=== PATIENT | male | born 1955 | race Caucasian/White ===

== ENCOUNTER → 2017-06-02 | Day surgery (SDC) | payer BC ==
[2017-06-01 12:15] LABS: BASO % 0.4 %; BASO ABS # 0.06 K/uL (0-0.2); COMPLETE YES; EOS % 1.8 %; HEMATOCRIT 48.1 % (42-52); IG% 0.9 %; LYMPH ABS # 3.11 K/uL (1.2-3.4); MEAN CELL VOLUME 90.8 fL (80-100); MEAN CORPUSCULAR HEMOGLOBIN 30.8 pg (25-34); MEAN CORPUSCULAR HGB CONC 33.9 g/dl (32-36); MEAN PLATELET VOLUME 9.3 fL (7.4-10.4); MONO % 8.9 %; PLATELET COUNT 296 K/uL (130-400); WHITE BLOOD COUNT 16.38 K/uL (4.8-10.8)
--- NOTE | 2017-06-01 12:30 | DIAGNOSTIC IMAGING REPORT ---
CHEST 2 VIEWS ROUTINE HISTORY: PRE OP TESTING COMPARISON: None. FINDINGS: The lungs are clear. Cardiac silhouette is normal in size. No pleural effusions. No pneumothorax. IMPRESSION: No acute process. Electronically signed by: Jaycob Rios M.D. 06/01/2017 12:28 PM Dictated Date/Time: 06/01/2017 12:28 PM
[2017-06-01 12:41] LABS: BLOOD UREA NITROGEN 18 mg/dl (7-18); BUN/CREATININE RATIO 16.9 (10-20); CALCIUM 9.5 mg/dl (8.5-10.1); CARBON DIOXIDE 29 mmol/L (21-32); CHLORIDE 102 mmol/L (98-107); CREATININE 1.05 mg/dl (0.60-1.40); GLUCOSE 90 mg/dl (70-99); POTASSIUM 4.1 mmol/L (3.5-5.1); SODIUM 137 mmol/L (136-145)
[2017-06-01 14:59] VITALS: BMI 32.0
[~2017-06-02] VITALS: Ht 180.3 cm; Wt 106.8 kg
[~2017-06-02] MED LIST: ACETAMINOPHEN 325 MG TAB PO PRN; AMLO-114 PO; ATROPINE SULFATE 0.1 MG/ML 5ML SYR IV PRN; BACITRACIN 50000 UNIT VIAL ONE; BUPIVACAINE/EPINEPHRINE 0.5% MPF 1:200,000 30 ML VIAL ONE; CEFAZOLIN 2000MG IV PUSH 10 ML IV SCH; ESMOLOL HCL 10 MG/ML 10 ML VIAL ONE; EpHEDrine SULFATE INJ 50 MG/ML AMP IV PRN; FENTANYL CITRATE INJ 50 MCG/1 ML 2 ML VIAL IV PRN; FENTANYL CITRATE INJ 50 MCG/1 ML 2 ML VIAL ONE; FLOSEAL HEMOSTATIC MATRIX 5ML TOP ONE; GLYCOPYRROLATE INJ 0.2 MG/ML VIAL ONE; HYDROmorphone INJ 1 MG/ML SYR IV PRN; HYDROmorphone INJ 2 MG/ML SYR/VIAL ONE; IBUP-103 PO; KETOROLAC TROMETHAMINE 30 MG/ML VIAL IV. PRN; LACTATED RINGER'S 1000ML 1,000 ML IV SCH; LIDOCAINE HCL 2% 2 ML VIAL (20MG/ML) ONE; LISI40TA PO; MIDAZOLAM HCL 1 MG/ML 2ML VIAL ONE; NEOSTIGMINE METHYLSULFATE 5 MG/5 ML SYR ONE; ONDANSETRON INJ 2 MG/ML 2 ML VIAL IV PRN; ONDANSETRON INJ 2 MG/ML 2 ML VIAL ONE; OXYC1TAB3 PO; OXYCODONE HCL IR 5 MG TAB (IMMEDIATE RELEASE) PO PRN; PATIENT'S HEIGHT AND/OR WEIGHT NEEDED SCH; PROMETHAZINE HCL INJ 6.25 MG in SODIUM CHLORIDE 0.9% 50ML 50 ML IV PRN; PROPOFOL IV EMULSION 10 MG/ML 20 ML VIAL IV ONE; ROCURONIUM BROMIDE 10 MG/ML 5 ML VIAL IV ONE
[2017-06-02 07:36] VITALS: BP 137/100; PULSE 90; TEMP 36.7; O2SAT 97; Ht 180.3 cm; Wt 106.8 kg
--- NOTE | 2017-06-02 08:14 | History & Physical Bridge Note ---
H&P Re-Evaluation Bridge Note: I have examined the patient, reviewed the History & Physical and in the interval since the performance of the History & Physical I have noted the following changes of clinical significance: No changes noted
--- NOTE | 2017-06-02 08:15 | History and Physical ---
History & Physical Date Jun 02, 2017. Chief Complaint Back and leg pain History of Present Illness The patient is a 61 year old male with complaints of back and leg pain Additional History Hepatic Disease: No Endocrine Disorder: No Kidney Disease: No Hypertension: Yes Heart Disease: No Bleeding Tendencies: No Infectious Diseases: No Allergies Coded Allergies: No Known Allergies (Unverified , 06/02/17) Home Medications Scheduled Amlodipine (Norvasc), 10 MG PO QAM Ibuprofen Tab (Advil), 400 MG PO PRN Lisinopril (Zestril), 40 MG PO QAM Scheduled PRN Oxycodone Ir (Roxicodone Ir), 1-2 TAB PO Q4H PRN for Severe Pain Diagnosis Are needed nucleus pulposus L4 5 on the left Plan of Treatment Far lateral discectomy L4 5 on the left
--- NOTE | 2017-06-02 10:29 | Discharge Instructions ---
Discharge Instructions Date of Service Jun 02, 2017. Admission Reason for Admission: Lumbar Intervertebral Disc Disorders W/Radiculopat Discharge Discharge Diagnosis / Problem: herniated disk Discharge Goals Goal(s): Decrease discomfort Activity Recommendations Activity Limitations: per Instructions/Follow-up section . Instructions / Follow-Up Instructions / Follow-Up ACTIVITY RECOMMENDATIONS: SELF CARE INSTRUCTIONS AFTER A LAMINECTOMY 1. No prolonged sitting (less than 30 minutes for the first 3 weeks after surgery). 2. No bending, lifting more than 5 pounds, or twisting (roll like a log when turning in bed). 3. You may shower 3 days after surgery if no drainage from wound. Thoroughly dry wound. Do not soak in the tub. 4. Please walk as much as you can for exercise. Gradually increase the distance that you walk as your endurance increases. 5. You may drive in 7-10 days if you are comfortable and no longer requiring pain medications. SPECIAL CARE INSTRUCTIONS: VERY IMPORTANT TO READ AND REVIEW A. Your surgical incision has been closed with a cosmetic suture under the skin that will dissolve in about 6 weeks. In 14 days, you can use a pair of clean scissors and cut the suture that is left outside of the skin at the ends of your incision. B. Complications are uncommon, but please contact us if you have any signs or symptoms of: 1. wound infection (fever higher than 102.5 degrees F, redness, separation of wound, drainage, or increasing pain from the incision) 2. blood clots in legs (pain, swelling, redness and warmth in legs) 3. urinary tract infection (fever higher than 102.5 degrees, burning upon urination or increased frequency of urination) 4. nerve problems (inability to walk on your toes or heels, numbness, loss of bowel or bladder control) 5. any other symptoms that concern you. C. Please call the office at if you have any concerns or questions about your operation or recovery. MANAGING PAIN AFTER SPINAL SURGERY 1. Narcotic medication is intended for short-term use and will be provided for surgical pain. Surgical pain usually lasts for a period of 4-6 weeks. Narcotic medication includes Percocet, Vicodin, Darvocet, Tylenol #3 or Lortab. 2. Longer-term pain is more appropriately treated with non-narcotic medication such as Tylenol ES. 3. Muscle spasm is not appropriately treated with narcotics. Muscle relaxers such as Soma, Flexeril or Skelaxin can be used along with Tylenol ES. 4. Remember that we all live with some "aches and pains". This is not unusual or uncommon after an injury or as we get older. 5. We will provide appropriate medication within the normal guidelines of their prescribed use. We will also be very cautious and aware of potential abuse and extended duration of patients' medication needs. 6. Please allow 2-3 days to process refills. Prescriptions will not be mailed but must be picked up at the office. FOLLOW UP VISIT: Keep your scheduled follow-up appointment. Any questions, please call the office at . Current Hospital Diet Patient's current hospital diet: Discharge Diet Recommended Diet: Regular Diet Procedures Procedures Performed: Far Lateral Discectomy L4-5 Left Pending Studies Studies pending at discharge: no Medical Emergencies . Who to Call and When: Medical Emergencies: If at any time you feel your situation is an emergency, please call 911 immediately. . Non-Emergent Contact Non-Emergency issues call your: Primary Care Provider . "Provider Documentation" section prepared by Saroj Boo. . VTE Core Measure Inpt VTE Proph given/why not?: Carolina Serrano, SCD's
--- NOTE | 2017-06-02 10:34 | [facility] Operative Report ---
Operative Report Operative Date Jun 02, 2017. Pre-Operative Diagnosis Herniated Nucleus Pulposus L4- 5 on the Left Post-Operative Diagnosis Herniated Nucleus Pulposus L4- 5 on the Left Procedure(s) Performed Far Lateral Discectomy L4-[address] 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 After informed consent was obtained patient was taken to the operative suite underwent intubation placed in a prone position the George table on top Miguel frame. All bony prominences were well-padded eyes inspected to ensure no external pressure placed upon them. This point the lumbar spines prepped and draped nostril fashion. The assistance of fluoroscopy identified the L4 5 disc space. A 2 cm incision was then placed just lateral to the midline on the left side overlying this region. Utilizing the metrics dilators I exposed the pars and neural foramen of L4 5 on the left. It was locked in position. Then it excised the intertransverse ligament to expose and exiting L4 nerve root. This was mobilized superiorly and several fragments of loose disc material identified underneath the root. They removed in their entirety. There is explored to ensure our frames addressed. The incision was copiously irrigated. The dilator system retractor was removed and incision closed with 1 Vicryl in the fascia 2-0 Vicryl subcutaneous tediously 4 Monocryl for final skin closure. Steri-Strips sterile dressings placed. Patient we can take PACU stable condition. I attest to the content of the Intraoperative Record and any orders documented therein. Any exceptions are noted below.
--- NOTE | 2017-06-02 11:21 | DIAGNOSTIC IMAGING REPORT ---
INTRAOPERATIVE RADIOGRAPHS CLINICAL HISTORY: Discectomy. Fluoroscopy time: 10 seconds. FINDINGS: 2 spot fluoroscopic views of the lower lumbar spine are presented. On the initial image a probe projects posteriorly at the L4-L5 level. On the second image a probe projects just posterior to the base of the L4 vertebral body. IMPRESSION: Intraoperative images from a discectomy procedure as above. See operative report for detailed findings. Electronically signed by: Jadon Malhotra M.D. 06/02/2017 11:20 AM Dictated Date/Time: 06/02/2017 11:19 AM
--- NOTE | 2017-06-02 11:58 | Anesthesiology Progress Note ---
Anesthesia Post Op Note Date & Time Jun 02, 2017 at 11:58 Vital Signs Pain Intensity: 4 Vital Signs Past 12 Hours Date Time Temp Pulse Resp B/P (MAP) Pulse Ox O2 Delivery O2 Flow Rate FiO2 06/02/17 11:55 82 16 126/84 95 Room Air 06/02/17 11:40 71 16 131/92 94 Room Air 06/02/17 11:25 74 16 142/89 95 Room Air 06/02/17 11:10 36.2 81 14 148/93 96 Room Air 06/02/17 11:00 83 14 147/91 100 Oxymask 8 06/02/17 10:50 89 16 145/95 100 Oxymask 8 06/02/17 10:43 36.4 89 16 147/90 100 Oxymask 8 06/02/17 07:36 36.7 90 18 137/100 (112) 97 Room Air Notes Mental Status: alert / awake / arousable, participated in evaluation Pt Amnestic to Procedure: Yes Nausea / Vomiting: adequately controlled Pain: adequately controlled Airway Patency, RR, SpO2: stable & adequate BP & HR: stable & adequate Hydration State: stable & adequate Anesthetic Complications: no major complications apparent
[2017-06-02 12:20] VITALS: BP 149/82; PULSE 74; TEMP 36.6; O2SAT 90
[2017-06-02 12:50] VITALS: BP 146/82; PULSE 80; TEMP 36.9; O2SAT 93
[2017-06-02 13:26] VITALS: BP 144/76; PULSE 84; TEMP 36.8; O2SAT 94
[2017-06-02 13:50] VITALS: BP 128/76; PULSE 84; TEMP 36.6; O2SAT 93
== END | disposition home or self-care (01) ==
LOC: C.ACU 07:12
PROVIDERS: ATTEND Orthopaedic Surgery Orthopaedic Surgery of the Spine
DX: M51.26 Other intervertebral disc displacement, lumbar region (principal); I10 Essential (primary) hypertension; E66.9 Obesity, unspecified; Z68.33 Body mass index [BMI] 33.0-33.9, adult; Z79.899 Other long term (current) drug therapy

== ENCOUNTER 2018-12-29 05:10 | Inpatient (IN) ==
--- NOTE | 2018-11-30 09:38 | PAT Medication Instructions ---
Medication Instructions Date of Service November 30, 2018 Home Medications amlodipine [Norvasc] 10 mg PO QAM lisinopril 40 mg PO QAM DO NOT take the morning of surgery lisinopril 40 mg PO QAM Take morning of surgery With a small sip of water, OTHERWISE NOTHING TO EAT OR DRINK AFTER MIDNIGHT: amlodipine [Norvasc] 10 mg PO QAM Other Notes If you have any questions please call us at [phone] or [phone] or [phone] or [phone]
--- NOTE | 2018-11-30 12:03 | Anesthesiology Consultation ---
Date of Service November 30, 2018 Assessment & Plan (1) Encounter for pre-operative examination: Chart Review Chart Review: Acceptable Risk for Surgery and Patient seen in Pre Admission Testing Consults Requested medical (Dr. Cliff Dickey (12/18)) Patient was seen by PCP for preoperative evaluation on 12/18/18. Per note from that visit, "Patient is medically cleared for intended procedure". Teaching & Discussion Pre-Anesthesia Teaching/Discussion Notes: Instructed NPO after midnight before surgery, except medications with 15 cc of water. Medication instructions provided according to the PAT guidelines. History Surgery Operation Date: 12/29/18 10:05 Proposed Procedures p Right Total Knee Arthroplasty - Anirudh Zazueta MD Height/Weight Height: 5 ft 11 in Weight: 115.5 kg Allergies Allergy/AdvReac Type Severity Reaction Status Date / Time No Known Allergies Allergy Unverified 11/24/18 12:07 Medications Home Medications Medication Instructions Recorded Confirmed Last Taken amlodipine [Norvasc] 10 mg PO QAM 11/24/18 11/24/18 Unknown lisinopril 40 mg PO QAM 11/24/18 11/24/18 Unknown Past Medical History Medical History Degenerative disc disease HTN (hypertension) Osteoarthritis Exercise / Class Metabolic Activity II 4-5 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 Denies CP or SOB. ) Past Family History Family History Mother Family history of diabetes mellitus Past Surgical History Surgical History History of discectomy LUMBAR SPINE - 06/02/17 - MAC #3, ETT #8.0, Grade 1 View History of left knee surgery QUAD TENDON REPAIR History of tonsillectomy History of wisdom tooth extraction Past Anesthesia History No Hx of Anesthesia Complications and No Family Hx of Anesthesia Complications History of PONV No Hx of PONV and No Hx of Motion Sickness Social History Smoking Status: Never smoker Do You Dip or Chew Tobacco: No Hx Alcohol Use: Yes Alcohol type: beer alcohol intake frequency: a few times a week Hx Substance Use: No substance use type: does not use Review of Systems Patient denies chest pain, shortness of breath, dyspnea on exertion, reflux, cough, wheezing, palpitations. +Joint Pain (Knees) Physical Exam Vital Signs BP: 137/80 P: 67 R: 70 T: 97.4 SPO2: 97% Constitutional + obese ENMT Mouth: + chipped teeth Thyromental Distance: > or= 3.5 Finger Breadths (4) Mallampati Class: I Neck normal visual inspection, trachea midline and + facial hair (Gupta - Will keep it trim); neck extension not limited Respiratory normal respiratory effort Auscultation: lungs clear to auscultation bilaterally Cardiovascular Rate/Rhythm: regular rate and regular rhythm Heart Sounds: no murmur Vessels: no carotid bruit Psychiatric Orientation: alert and oriented x 3 Testing Laboratory Results 11/30/18 11:46 11/30/18 11:46 11/30/18 11/30/18 11/30/18 11:46 11:46 11:46 PT 10.6 INR 1.0 APTT 26.8 Hemoglobin A1c 6.0 H Urine Color Urine Appearance Urine pH Ur Specific [place] Urine Protein Urine Glucose (UA) Urine Ketones Urine Nitrite Ur Leukocyte Esterase Blood Type O Negative Antibody Screen NEGATIVE 11/30/18 Unknown PT INR APTT Hemoglobin A1c Urine Color Yellow Urine Appearance Clear Urine pH 5.0 Ur Specific [place] 1.025 Urine Protein Negative Urine Glucose (UA) Negative Urine Ketones Negative Urine Nitrite Negative Ur Leukocyte Esterase Negative Blood Type Antibody Screen Electrocardiogram Date: 11/30/18 Findings: + NSR @ (61) When compared with ECG of 06/01/19, Non-specific change in ST segment in inferior leads. Inverted T waves have replaced nonspecific T wave abnormality in inferior lead Nonspecific T wave abnormality no longer evident in anterior leads. Chest X-Ray Date: 11/30/18 Findings: + NAD
--- NOTE | 2018-11-30 12:49 | XRay Report ---
XR chest Pre-admission PA/Lat HISTORY: Preop. COMPARISON: Chest 06/01/2017. FINDINGS: Small faint nodular density at the left lung base favors a nipple shadow. Otherwise, the cynthia ngs are clear. The heart is normal in size. No pleural effusions. No pneumothorax. IMPRESSION: No acute process. Electronically signed by: Jaycob Rios M.D. 11/30/2018 12:48 PM
[2018-11-30 12:59] LABS: Eosinophils # (auto) 0.43 K/uL (0-0.5); Eosinophils % (auto) 4.2 %; Hematocrit (blood only) 43.5 % (42-52); Hemoglobin 14.9 g/dL (14.0-18.0); Immature Granulocytes # (auto) 0.07 K/uL (0.00-0.02); Immature Granulocytes % (auto) 0.7 %; Lymphocytes # (auto) 2.97 K/uL (1.2-3.4); Mean Corpuscular Hgb Conc 34.3 g/dL (32-36); Mean Corpuscular Volume 88.1 fL (80-100); Mean Platelet Volume 9.7 fL (7.4-10.4); Monocytes # (auto) 1.02 K/uL (0.11-0.59); Neutrophils # (auto) 5.66 K/uL (1.4-6.5); Neutrophils % (auto) 55.1 %; Platelet Count 275 K/uL (130-400); RDW Coefficient of Variation 13.3 % (11.5-14.5); RDW Standard Deviation 42.8 fL (36.4-46.3); Red Blood Count 4.94 M/uL (4.7-6.1); White Blood Count 10.25 K/uL (4.8-10.8)
[2018-11-30 13:06] LABS: Calcium 9.4 mg/dl (8.5-10.1); Creatinine Clr Calc Pharmacy 116.3 ml/min; Est GFR (Non-African American) 93.2; Potassium 4.1 mmol/L (3.5-5.1)
[2018-11-30 13:07] LABS: Partial Thromboplastin Time 26.8 Seconds (21.0-31.0); Prothrombin Time 10.6 Seconds (9.0-12.0)
[2018-11-30 13:07] LABS: Appearance Urine Clear (Clear); Bilirubin Urine Negative (Negative); Blood Urine Negative (Negative); Color Urine Yellow; Glucose Urine UA Negative (Negative); Ketones Urine Negative (Negative); Leukocyte Esterase Urine Negative (Negative); Nitrite Urine Negative (Negative); Protein Urine Negative (Negative); Specific Gravity Urine 1.025 (1.000-1.030); Urobilinogen Urine Negative (Negative)
[2018-11-30 13:42] LABS: Estimated Average Glucose 126 mg/dl
--- NOTE | 2018-12-21 20:13 | History & Physical Report ---
Date of Service December 21, 2018 Assessment & Plan (1) Primary osteoarthritis of right knee: Patient has significant osteoarthritis of right knee. He has failed conservative measures as above. Treatment options discussed. Risks, benefits and alternatives to surgery including but not limited to infection, DVT, pain, stiffness, need for revision surgery, damage to blood vessels, damage to nerves, PE, , were discussed with the patient and they wish to proceed. Plan will be for right total knee arthroplasty. All questions were answered. Plan will be for aspirin 81mg BID x 30 days for DVT prophylaxis. We will plan on outpatient PT once patient is discharged from the hospital. He will follow up in the office post operatively. History of Present Illness Chief Complaint: Right knee pain Primary Care Provider: Cliff Dickey Patient is a 68 year old male with past medical history significant for hypertension and history of TIA who presents with chronic right knee pain. X- rays demonstrate significant degenerative joint disease with [id number] lateral compartment. He has failed conservative measures including cortisone injections, NSAIDs, therapy. The pain is affecting his daily activities. He would like to proceed with right total knee arthroplasty. Patient denies headaches, sweats, fevers, chills, double vision, blurred vision, cough, sore throat, dysphagia, chest pain, sob, wheezing, n/v/d/c, numbness, tingling, fatigue, urinary symptoms, mood disorders. ROS positive for bilateral knee pain and stiffness. Allergies Allergy/AdvReac Type Severity Reaction Status Date / Time No Known Allergies Allergy Unverified 11/24/18 12:07 Home Medications Home Medications Medication Instructions Recorded Confirmed Type amlodipine [Norvasc] 10 mg PO QAM 11/24/18 11/24/18 History lisinopril 40 mg PO QAM 11/24/18 11/24/18 History Past Med/Surg History Medical History Degenerative disc disease HTN (hypertension) Osteoarthritis Surgical History History of discectomy LUMBAR SPINE - 06/02/17 - MAC #3, ETT #8.0, Grade 1 View History of left knee surgery QUAD TENDON REPAIR History of tonsillectomy History of wisdom tooth extraction Family History Mother Family history of diabetes mellitus Social History Preferred Language: Latvian Communication Ability: Effective Purchaser Required: No Beliefs That Will Affect Care: None Current Living Situation: Spouse Other Information That Helps Us Care for You: No Feels Safe at Home: Yes Safety Concerns: Feels Safe At This Time Smoking Status: Never smoker Do You Dip or Chew Tobacco: No Second Hand Exposure: No Hx Alcohol Use: Yes Alcohol type: beer Hx Substance Use: No Review of Systems All systems reviewed & are unremarkable except as noted in HPI & below Physical Exam Constitutional: well developed and well nourished; no acute distress Eyes: PERRL, conjunctivae normal, anicteric sclerae ENMT: external ear and nose normal, oropharynx normal Neck: trachea midline, no thyromegaly Respiratory: normal respiratory effort, lungs clear to auscultation Cardiovascular: RRR, no murmur, no edema Musculoskeletal: Right knee-ROM 0-125 degrees with crepitus, mild effusion, tenderness lateral joint line, Sonia's positive, stable to valgus and varus stress test. Skin: no rashes, warm and dry Neurologic: patellar DTR's 2+ bilat, sensation intact Psychiatric: A+Ox3, euthymic affect Results & Data Laboratory Results Lab Results 11/30/18 11/30/18 11/30/18 Range/Units 11:46 11:46 11:46 WBC 10.25 (4.8-10.8) K/uL RBC 4.94 (4.7-6.1) M/uL Hgb 14.9 (14.0-18.0) g/dL Hct 43.5 (42-52) % MCV 88.1 (80-100) fL MCH 30.2 (25-34) pg MCHC 34.3 (32-36) g/dL RDW Std Deviation 42.8 (36.4-46.3) fL RDW Coeff of Carlito 13.3 (11.5-14.5) % Plt Count 275 (130-400) K/uL MPV 9.7 (7.4-10.4) fL Immature Gran % (Auto) 0.7 % Neut % (Auto) 55.1 % Lymph % (Auto) 29.0 % Chase % (Auto) 10.0 % Eos % (Auto) 4.2 % Baso % (Auto) 1.0 % Immature Gran # (Auto) 0.07 H (0.00-0.02) K/uL Neut # (Auto) 5.66 (1.4-6.5) K/uL Lymph # (Auto) 2.97 (1.2-3.4) K/uL Chase # (Auto) 1.02 H (0.11-0.59) K/uL Eos # (Auto) 0.43 (0-0.5) K/uL Baso # (Auto) 0.10 (0-0.2) K/uL PT 10.6 (9.0-12.0) Seconds INR 1.0 (0.9-1.1) APTT 26.8 (21.0-31.0) Seconds PTT Ratio 1.0 Sodium 141 (136-145) mmol/L Potassium 4.1 (3.5-5.1) mmol/L Chloride 107 (98-107) mmol/L Carbon Dioxide 28 (21-32) mmol/L Anion Gap 6.0 (3-11) BUN 19 H (7-18) mg/dl Creatinine 0.84 (0.6-1.4) mg/dl Est Cr Clr Drug Dosing 116.3 ml/min Est GFR ( Amer) 108.0 Est GFR (Non-Af Amer) 93.2 BUN/Creatinine Ratio 23.0 H (10-20) Glucose 68 L (70-99) mg/dl Estimat Average Glucose mg/dl Hemoglobin A1c (4.5-5.6) % Calcium 9.4 (8.5-10.1) mg/dl Albumin 4.0 (3.4-5.0) gm/dl Urine Color Urine Appearance (Clear) Urine pH (4.5-7.5) Ur Specific [place] (1.000-1.030) Urine Protein (Negative) Urine Glucose (UA) (Negative) Urine Ketones (Negative) Urine Blood (Negative) Urine Nitrite (Negative) Urine Bilirubin (Negative) Urine Urobilinogen (Negative) Ur Leukocyte Esterase (Negative) Blood Type Antibody Screen 11/30/18 11/30/18 11/30/18 Range/Units 11:46 11:46 Unknown WBC (4.8-10.8) K/uL RBC (4.7-6.1) M/uL Hgb (14.0-18.0) g/dL Hct (42-52) % MCV (80-100) fL MCH (25-34) pg MCHC (32-36) g/dL RDW Std Deviation (36.4-46.3) fL RDW Coeff of Carlito (11.5-14.5) % Plt Count (130-400) K/uL MPV (7.4-10.4) fL Immature Gran % (Auto) % Neut % (Auto) % Lymph % (Auto) % Chase % (Auto) % Eos % (Auto) % Baso % (Auto) % Immature Gran # (Auto) (0.00-0.02) K/uL Neut # (Auto) (1.4-6.5) K/uL Lymph # (Auto) (1.2-3.4) K/uL Chase # (Auto) (0.11-0.59) K/uL Eos # (Auto) (0-0.5) K/uL Baso # (Auto) (0-0.2) K/uL PT (9.0-12.0) Seconds INR (0.9-1.1) APTT (21.0-31.0) Seconds PTT Ratio Sodium (136-145) mmol/L Potassium (3.5-5.1) mmol/L Chloride (98-107) mmol/L Carbon Dioxide (21-32) mmol/L Anion Gap (3-11) BUN (7-18) mg/dl Creatinine (0.6-1.4) mg/dl Est Cr Clr Drug Dosing ml/min Est GFR ( Amer) Est GFR (Non-Af Amer) BUN/Creatinine Ratio (10-20) Glucose (70-99) mg/dl Estimat Average Glucose 126 mg/dl Hemoglobin A1c 6.0 H (4.5-5.6) % Calcium (8.5-10.1) mg/dl Albumin (3.4-5.0) gm/dl Urine Color Yellow Urine Appearance Clear (Clear) Urine pH 5.0 (4.5-7.5) Ur Specific [place] 1.025 (1.000-1.030) Urine Protein Negative (Negative) Urine Glucose (UA) Negative (Negative) Urine Ketones Negative (Negative) Urine Blood Negative (Negative) Urine Nitrite Negative (Negative) Urine Bilirubin Negative (Negative) Urine Urobilinogen Negative (Negative) Ur Leukocyte Esterase Negative (Negative) Blood Type O Negative Antibody Screen NEGATIVE Diagnostic Findings Right knee radiographs: Arthritic change, [id number] lateral compartment. Osteophyte formation lateral tibial plateau and significant degenerative changes patellofemoral joint.
[2018-12-29] MEDS ORDERED: BUPIVACAINE 0.5 % 5 MG/1 ML PF 10ML VIAL ONE (05:57)
[2018-12-29] MEDS ORDERED: DEXAMETHASONE SOD INJ 4 MG/ML VIAL ONE (05:57)
[2018-12-29] MEDS ORDERED: BUPIVACAINE/EPINEPHRINE 0.25% 1:200,000 30 ML VIAL ONE (05:57)
[2018-12-29] MEDS ORDERED: dexAMETHasone 4 MG TAB PO SCH (06:00)
[2018-12-29] MEDS ORDERED: CEFAZOLIN 2000MG 2,000 MG/15 ML SYR IV SCH (06:00)
[2018-12-29] MEDS ORDERED: FAMOTIDINE 20 MG TAB PO SCH (06:00)
[2018-12-29] MEDS ORDERED: ROPIVACAINE 0.5% HCL/PF 150 MG, BUPIVACAINE 0.5% MPF 30 ML, EPINEPHrine 30MG/30ML (OR U... INSTIL SCH (06:00)
[2018-12-29] MEDS ORDERED: CeleBREX 200 MG CAP PO SCH (06:00)
[2018-12-29] MEDS ORDERED: CEFAZOLIN 1000MG 1,000 MG/7.5 ML SYR IV SCH (06:00)
[2018-12-29] MEDS ORDERED: TRANEXAMIC ACID 1,000 MG **IV Pre-op IV SCH (06:00)
[2018-12-29] MEDS ORDERED: METOCLOPRAMIDE HCL 10 MG TABLET PO SCH (06:00)
[2018-12-29] MEDS ORDERED: LR 500ML BOLUS, THEN 15ML/HR IV SCH (06:00)
[2018-12-29] MEDS ORDERED: ACETAMINOPHEN 500 MG TAB PO SCH (06:00)
[2018-12-29] MEDS ORDERED: TRANEXAMIC ACID 1,000 MG **IV Intra-op IV SCH (06:30)
[2018-12-29] MEDS ORDERED: LIDOCAINE HCL 2% 2 ML VIAL/AMP(20MG/ML) INFIL ONE (06:30)
[2018-12-29] MEDS ORDERED: PROPOFOL IV EMULSION 10 MG/ML 20 ML VIAL IV ONE ×2 (06:30→07:58)
[2018-12-29] MEDS ORDERED: MIDAZOLAM HCL 1 MG/ML 2ML VIAL ONE ×2 (06:30→08:32)
[2018-12-29] MEDS ORDERED: fentaNYL citrate 100 MCG/2 ML VIAL ONE (06:30)
[2018-12-29] MEDS ORDERED: BACITRACIN INJ 50,000 UNIT VIAL ONE (06:41)
[2018-12-29] MEDS ORDERED: ATROPINE SULFATE 0.1 MG/ML 10ML SYR IV PRN (06:55)
[2018-12-29] MEDS ORDERED: ePHEDrine sulfate 50 MG/ML AMP IV PRN (06:55)
[2018-12-29] MEDS ORDERED: ONDANSETRON INJ 2 MG/ML 2 ML VIAL IV PRN ×2 (06:55→10:29)
[2018-12-29] MEDS ORDERED: fentaNYL citrate 100 MCG/2 ML VIAL IV PRN (06:55)
[2018-12-29] MEDS ORDERED: METOCLOPRAMIDE HCL 10 MG TABLET ONE (06:58)
[2018-12-29] MEDS ORDERED: dexAMETHasone 4 MG TAB PO ONE (06:58)
[2018-12-29] MEDS ORDERED: CeleBREX 200 MG CAP ONE (06:58)
[2018-12-29] MEDS ORDERED: ACETAMINOPHEN 500 MG TAB ONE (06:59)
--- NOTE | 2018-12-29 07:01 | History & Physical Bridge Note ---
Date of Service December 29, 2018 History & Physical Bridge Note I have examined the patient, reviewed the History & Physical and in the interval since the performance of the History & Physical I have noted the following changes of clinical significance: no changes noted
[2018-12-29] MEDS: FAMOTIDINE 20 MG TAB ONE ×2 (07:03)
--- NOTE | 2018-12-29 08:49 | Operative Report ---
Post Operative Report Pre & Post Diagnosis Operation Date: 12/29/18 07:00 Pre-Op Diagnosis: Right Knee Osteoarthritis Post-Op Diagnosis: Right Knee Osteoarthritis Procedure Operation Date: 12/29/18 07:00 Actual Procedures p Right Total Knee Arthroplasty(Right) - Anirudh Zazueta MD Surgeon Anirudh Zazueta MD Med Dir 20 Estimated Blood Loss 20 Findings Consistent with Post-Op Diagnosis Specimens Bone and tissue Drains 2 Hemovac Anesthesia Type Spinal MAC Complications none Disposition Accompanied Patient To Recovery: No Disposition: Recovery Room Indications The patient is a 63-year-old male long-standing arthritic change the right knee. [id number] lateral compartment. He is failed conservative measures, injection, anti-inflammatory medications and rehab. He wishes to proceed with a right total knee arthroplasty. Description of Procedure Risks benefits and alternatives of surgery including but not limited to infe ction, DVT, pain, stiffness, need for surgery, damage to blood vessels, damage to nerves or risks of anesthesia were discussed with the patient and they wished to proceed. The patient was identified and the laterality was confirmed and marked. They received a preoperative antibiotic as well as a spinal anesthetic and an abductor canal block. A well-padded tourniquet was applied and then the limb was prepped and draped in standard manner with ChloraPrep. The limb was exsanguinated and the tourniquet was inflated. I made a standard anterior incision. I sharply incised the skin then utilized Bovie electrocautery to achieve hemostasis. I made a medial parapatellar arthrotomy and mobilized the patella laterally. I then excised the anterior horns of the medial and lateral meniscus as well as the infrapatellar fat pad. I elevated a portion of the MCL off of the tibia. I then pinned into place a patient-matched distal femoral cutting guide and made my distal femoral resection. I then pinned into place the 5 in 1 femoral cutting guide. I made my anterior, posterior and chamfer cuts. I then excised the cruciates and the remaining portions of the menisci. I then pinned into place a patient- matched tibial cutting guide and made my tibial resection. I then pinned into place the tibial plate a utilizing alignment ovi to confirm rotation. I then cut for the post. Utilizing a lamina brake drum molder and I then removed posterior osteophytes off the femur. I then placed a trial femur into position and cut for the trochlear component. I then sequentially trialed to size the polyethylene until there was good soft tissue balancing and range of motion. I then prepared the patella with a freehand cut utilizing sagittal saw. I sized and drilled for the patella. There was good tracking to the patella no lateral release was needed. All the trial components were removed. The deep tissues were anesthetized with an ortho mix solution. Then with Simplex HV with gentamicin cement, I cemented my definitive components. Definitive components, Milligan and Nephew Charles 2: Femur 8 Tibia 8 Poly 9 Patella 38 oval A betadine soak was performed. A deep drain was placed. The arthrotomy was closed with interrupted #1 Vicryl suture subcutaneous tissue was closed with interrupted 2-0 Vicryl suture. The skin was closed with with nathan. An Acticoat and Jose dressing were placed. Sterile dressings were applied. All needle and sponge counts were correct at the end of the procedure patient was transferred to the PACU in stable condition without apparent complication. The PA-C was necessary for assistance with procedure for assistance in positioning, prepping, draping, retraction and closure. I attest to the content of the Intraoperative Record and any orders documented therein. Any exceptions are noted below.
--- NOTE | 2018-12-29 09:56 | XRay Report ---
XR knee RT 2V routine CLINICAL HISTORY: Surgical Post Op COMPARISON: None FINDINGS: Alignment of the total right knee arthroplasty is anatomic. There is no fracture or unexpe cted radiopaque foreign body. There are drains and skin nathan. IMPRESSION: Expected findings following total right knee arthroplasty. Electronically signed by: Roe Julio M.D. 12/29/2018 9:55 AM
[2018-12-29] MEDS ORDERED: MAGNESIUM HYDROXIDE SUSP 30 ML UDC PO PRN (10:29)
[2018-12-29] MEDS ORDERED: METOCLOPRAMIDE HCL INJ 5 MG/ML 2 ML VIAL IV PRN (10:29)
[2018-12-29] MEDS ORDERED: BISACODYL 10 MG SUPP PR PRN (10:29)
[2018-12-29] MEDS ORDERED: TAMSULOSIN HCL 0.4 MG CAP PO PRN (10:29)
[2018-12-29] MEDS ORDERED: NALOXONE HCL 0.4 MG/1 ML VIAL/CARP IV PRN (10:29)
[2018-12-29] MEDS: OXYCODONE HCL IR 5 MG TAB (IMMEDIATE RELEASE) PO PRN ×3 (11:16→22:25)
[2018-12-29] MEDS: SODIUM CHLORIDE 0.9% 1000ML 1,000 ML IV SCH ×2 (11:21→20:16)
--- NOTE | 2018-12-29 11:36 | Anesthesiology Progress Note ---
Date of Service December 29, 2018 Anesthesia Post Procedure Vital Signs Vital Signs: Temp Pulse Pulse Resp BP BP Pulse Ox 12/29/18 11:18 36.3 C L 62 16 141/87 H 95 12/29/18 10:48 60 16 123/74 95 12/29/18 10:00 36.5 C 61 15 100/60 93 12/29/18 09:50 62 13 108/65 93 12/29/18 09:40 62 20 103/58 L 94 12/29/18 09:32 36.5 C 66 16 108/63 97 12/29/18 05:41 36.5 C 65 20 144/87 H 97 Pain Intensity Right Knee: Pain Intensity: 0 Transfer of Care Handoff Completed per policy Notes Mental Status: alert / awake / arousable Patient Amnestic to Procedure: Yes Nausea / Vomiting: adequately controlled Pain: adequately controlled Airway Patency, RR, SpO2: stable & adequate BP & HR: stable & adequate Hydration State: stable & adequate Neuraxial Anesthesia: was administered and sensory block is resolving Anesthetic Complications: no major complications apparent
[2018-12-29] MEDS ORDERED: HYDROmorphone INJ 0.5 MG/0.5 ML SYR IV PRN (13:39)
[2018-12-29] MEDS: ACETAMINOPHEN 500 MG TAB PO SCH ×2 (14:26→21:08)
[2018-12-29] MEDS: CEFAZOLIN 2000MG 2,000 MG/15 ML SYR IV SCH ×2 (14:27→22:12)
[2018-12-29] MEDS: CeleBREX 200 MG CAP PO SCH (20:13)
[2018-12-29] MEDS: ASPIRIN 81 MG ECTAB PO SCH (20:13)
[2018-12-29] MEDS: SENNA 8.6 MG TAB PO SCH (20:13)
[2018-12-29] MEDS: DOCUSATE SODIUM 100 MG CAP PO SCH (20:13)
[2018-12-30] MEDS: OXYCODONE HCL IR 5 MG TAB (IMMEDIATE RELEASE) PO PRN ×4 (04:24→23:47)
[2018-12-30] MEDS: ACETAMINOPHEN 500 MG TAB PO SCH ×3 (06:05→20:38)
[2018-12-30 06:42] LABS: Hematocrit (blood only) 37.3 % (42-52); Hemoglobin 12.7 g/dL (14.0-18.0); Mean Corpuscular Volume 87.4 fL (80-100); Mean Platelet Volume 9.8 fL (7.4-10.4); Platelet Count 243 K/uL (130-400); RDW Coefficient of Variation 13.1 % (11.5-14.5); RDW Standard Deviation 41.8 fL (36.4-46.3); Red Blood Count 4.27 M/uL (4.7-6.1); White Blood Count 25.54 K/uL (4.8-10.8)
[2018-12-30 07:07] LABS: BUN Creatinine Ratio 23.5 (10-20); Calcium 8.8 mg/dl (8.5-10.1); Creatinine Clr Calc Pharmacy 105.8 ml/min; Est GFR (African American) 102.2; Est GFR (Non-African American) 88.2; Potassium 4.2 mmol/L (3.5-5.1)
--- NOTE | 2018-12-30 08:11 | Orthopedic Progress Note ---
Date of Service December 30, 2018 Assessment & Plan (1) Status post right knee replacement: 63 yo male stable POD #1 s/p right TKA 1. Med management 2. DVT prophylaxis- ASA, SCDs 3. PT/OT 4. D/C planning- home w/ OPPT Subjective Pt resting in chair, pain controlled, denies complaints Physical Exam Physical Exam: Toes mobile, N/V/I, dressing and drain in place, JESSENIA in place Results & Data Vital Signs (Past 12 Hours) Vital Signs Temp Pulse Resp BP BP Pulse Ox 12/30/18 07:11 36.4 C L 63 18 118/73 97 12/30/18 03:29 36.4 C L 58 L 18 122/77 96 12/29/18 23:02 36.4 C L 60 18 117/69 95 Laboratory Results 12/30/18 12/30/18 12/29/18 Range/Units 06:17 06:17 05:50 WBC 25.54 H (4.8-10.8) K/uL RBC 4.27 L (4.7-6.1) M/uL Hgb 12.7 L (14.0-18.0) g/dL Hct 37.3 L (42-52) % MCV 87.4 (80-100) fL MCH 29.7 (25-34) pg MCHC 34.0 (32-36) g/dL RDW Std Deviation 41.8 (36.4-46.3) fL RDW Coeff of Carlito 13.1 (11.5-14.5) % Plt Count 243 (130-400) K/uL MPV 9.8 (7.4-10.4) fL Sodium 142 (136-145) mmol/L Potassium 4.2 (3.5-5.1) mmol/L Chloride 110 H (98-107) mmol/L Carbon Dioxide 23 (21-32) mmol/L Anion Gap 9.0 (3-11) BUN 22 H (7-18) mg/dl Creatinine 0.92 (0.6-1.4) mg/dl Est Cr Clr Drug Dosing 105.8 ml/min Est GFR ( Amer) 102.2 Est GFR (Non-Af Amer) 88.2 BUN/Creatinine Ratio 23.5 H (10-20) Glucose 149 H (70-99) mg/dl Calcium 8.8 (8.5-10.1) mg/dl Hepatitis C Ab Screen Neg (Neg)
[2018-12-30] MEDS: AMLODIPINE BESYLATE 5 MG TAB PO SCH (08:40)
[2018-12-30] MEDS: ASPIRIN 81 MG ECTAB PO SCH ×2 (08:40→20:37)
[2018-12-30] MEDS: CeleBREX 200 MG CAP PO SCH ×2 (08:40→20:38)
[2018-12-30] MEDS: DOCUSATE SODIUM 100 MG CAP PO SCH ×2 (08:41→20:37)
[2018-12-30] MEDS: MULTIVITAMIN TAB PO SCH (08:41)
[2018-12-30] MEDS: LISINOPRIL 40 MG TAB PO SCH (08:41)
[2018-12-30] MEDS: SENNA 8.6 MG TAB PO SCH (20:38)
[2018-12-31] MEDS: ACETAMINOPHEN 500 MG TAB PO SCH (05:06)
[2018-12-31] MEDS: OXYCODONE HCL IR 5 MG TAB (IMMEDIATE RELEASE) PO PRN ×2 (05:08→10:17)
[2018-12-31] MEDS: MULTIVITAMIN TAB PO SCH (08:13)
[2018-12-31] MEDS: LISINOPRIL 40 MG TAB PO SCH (08:13)
[2018-12-31] MEDS: AMLODIPINE BESYLATE 5 MG TAB PO SCH (08:13)
[2018-12-31] MEDS: CeleBREX 200 MG CAP PO SCH (08:13)
[2018-12-31] MEDS: DOCUSATE SODIUM 100 MG CAP PO SCH (08:13)
[2018-12-31] MEDS: ASPIRIN 81 MG ECTAB PO SCH (08:44)
--- NOTE | 2018-12-31 09:13 | Orthopedic Progress Note ---
Date of Service December 31, 2018 Assessment & Plan (1) Status post right knee replacement: 63 yo male stable POD #2 s/p right TKA 1. Med management 2. DVT prophylaxis- ASA, SCDs 3. PT/OT 4. D/C planning- home w/ OPPT Subjective Pt resting in chair, pain controlled, denies complaints Physical Exam Physical Exam: JESSENIA dressing in place, toes mobile, NVI, calves soft, NT Results & Data Vital Signs (Past 12 Hours) Vital Signs Temp Pulse Resp BP BP Pulse Ox 12/31/18 07:28 36.4 C L 53 L 18 125/81 99 12/30/18 23:51 36.4 C L 60 18 137/84 99
--- NOTE | 2018-12-31 12:56 | Discharge Summary ---
Date of Service December 31, 2018 Admission HPI Per Admitting Provider Patient is a 68 year old male with past medical history significant for hypertension and history of TIA who presents with chronic right knee pain. X- rays demonstrate significant degenerative joint disease with [id number] lateral compartment. He has failed conservative measures including cortisone injections, NSAIDs, therapy. The pain is affecting his daily activities. He would like to proceed with right total knee arthroplasty. Patient denies headaches, sweats, fevers, chills, double vision, blurred vision, cough, sore throat, dysphagia, chest pain, sob, wheezing, n/v/d/c, numbness, tingling, fatigue, urinary symptoms, mood disorders. ROS positive for bilateral knee pain and stiffness. Admission Exam Per Admitting Provider Constitutional: well developed and well nourished; no acute distress Eyes: PERRL, conjunctivae normal, anicteric sclerae ENMT: external ear and nose normal, oropharynx normal Neck: trachea midline, no thyromegaly Respiratory: normal respiratory effort, lungs clear to auscultation Cardiovascular: RRR, no murmur, no edema Musculoskeletal: Right knee-ROM 0-125 degrees with crepitus, mild effusion, tenderness lateral joint line, Sonia's positive, stable to valgus and varus stress test. Skin: no rashes, warm and dry Neurologic: patellar DTR's 2+ bilat, sensation intact Psychiatric: A+Ox3, euthymic affect Principal Diagnosis Right knee osteoarthritis Discharge Exam Constitutional well developed and well nourished; no acute distress Eyes PERRL, conjunctivae normal, anicteric sclerae ENMT external ear and nose normal, oropharynx normal Neck trachea midline, no thyromegaly Respiratory normal respiratory effort, lungs clear to auscultation Cardiovascular RRR, no murmur, no edema Skin no rashes, warm and dry Neurologic patellar DTR's 2+ bilat, sensation intact Psychiatric A+Ox3, euthymic affect Discharge Data Allergies Allergy/AdvReac Type Severity Reaction Status Date / Time No Known Allergies Allergy Verified 12/29/18 05:41 Consultations 12/29/18 10:29 Consult Case Management - Discharge Planning Routine Procedures Performed Operation Date: 12/29/18 07:00 Actual Procedures p Right Total Knee Arthroplasty(Right) - Anirudh Zazueta MD Ordered Studies 12/29/18 05:00 US - OR guided needle placemen Routine Hospital Course (1) Status post right knee replacement: Patient presented for same day admission following Right knee osteoarthritis on 12/29/18. He tolerated procedure well. The Patient had an uneventful hospital course. Post-operatively, his activity was progressed and well tolerated. They participated in PT with ambulation distance of 325 feet. ROM of operative knee reached 90 degrees. Labs remained stable- lowest hemoglobin recorded: 12.7. Pain controlled on oral medications. Please refer to daily progress notes and PT notes for complete details. After exam on 12/31/18, patient was felt to be stable for discharge home with plans to attend outpatient PT. Patient will f/u in the office in about 2 weeks for further evaluation including x-rays and incision check, sooner if having any issues or concerns. Lab Results 11/30/18 11/30/18 11/30/18 Range/Units 11:46 11:46 11:46 WBC 10.25 (4.8-10.8) K/uL RBC 4.94 (4.7-6.1) M/uL Hgb 14.9 (14.0-18.0) g/dL Hct 43.5 (42-52) % MCV 88.1 (80-100) fL MCH 30.2 (25-34) pg MCHC 34.3 (32-36) g/dL RDW Std Deviation 42.8 (36.4-46.3) fL RDW Coeff of Carlito 13.3 (11.5-14.5) % Plt Count 275 (130-400) K/uL MPV 9.7 (7.4-10.4) fL Immature Gran % (Auto) 0.7 % Neut % (Auto) 55.1 % Lymph % (Auto) 29.0 % Garvin % (Auto) 10.0 % Eos % (Auto) 4.2 % Baso % (Auto) 1.0 % Immature Gran # (Auto) 0.07 H (0.00-0.02) K/uL Neut # (Auto) 5.66 (1.4-6.5) K/uL Lymph # (Auto) 2.97 (1.2-3.4) K/uL Garvin # (Auto) 1.02 H (0.11-0.59) K/uL Eos # (Auto) 0.43 (0-0.5) K/uL Baso # (Auto) 0.10 (0-0.2) K/uL PT 10.6 (9.0-12.0) Seconds INR 1.0 (0.9-1.1) APTT 26.8 (21.0-31.0) Seconds PTT Ratio 1.0 Sodium 141 (136-145) mmol/L Potassium 4.1 (3.5-5.1) mmol/L Chloride 107 (98-107) mmol/L Carbon Dioxide 28 (21-32) mmol/L Anion Gap 6.0 (3-11) BUN 19 H (7-18) mg/dl Creatinine 0.84 (0.6-1.4) mg/dl Est Cr Clr Drug Dosing 116.3 ml/min Est GFR ( Amer) 108.0 Est GFR (Non-Af Amer) 93.2 BUN/Creatinine Ratio 23.0 H (10-20) Glucose 68 L (70-99) mg/dl Estimat Average Glucose mg/dl Hemoglobin A1c (4.5-5.6) % Calcium 9.4 (8.5-10.1) mg/dl Albumin 4.0 (3.4-5.0) gm/dl Urine Color Urine Appearance (Clear) Urine pH (4.5-7.5) Ur Specific [place] (1.000-1.030) Urine Protein (Negative) Urine Glucose (UA) (Negative) Urine Ketones (Negative) Urine Blood (Negative) Urine Nitrite (Negative) Urine Bilirubin (Negative) Urine Urobilinogen (Negative) Ur Leukocyte Esterase (Negative) Hepatitis C Ab Screen (Neg) Blood Type Antibody Screen 11/30/18 11/30/18 11/30/18 Range/Units 11:46 11:46 Unknown WBC (4.8-10.8) K/uL RBC (4.7-6.1) M/uL Hgb (14.0-18.0) g/dL Hct (42-52) % MCV (80-100) fL MCH (25-34) pg MCHC (32-36) g/dL RDW Std Deviation (36.4-46.3) fL RDW Coeff of Carlito (11.5-14.5) % Plt Count (130-400) K/uL MPV (7.4-10.4) fL Immature Gran % (Auto) % Neut % (Auto) % Lymph % (Auto) % Garvin % (Auto) % Eos % (Auto) % Baso % (Auto) % Immature Gran # (Auto) (0.00-0.02) K/uL Neut # (Auto) (1.4-6.5) K/uL Lymph # (Auto) (1.2-3.4) K/uL Garvin # (Auto) (0.11-0.59) K/uL Eos # (Auto) (0-0.5) K/uL Baso # (Auto) (0-0.2) K/uL PT (9.0-12.0) Seconds INR (0.9-1.1) APTT (21.0-31.0) Seconds PTT Ratio Sodium (136-145) mmol/L Potassium (3.5-5.1) mmol/L Chloride (98-107) mmol/L Carbon Dioxide (21-32) mmol/L Anion Gap (3-11) BUN (7-18) mg/dl Creatinine (0.6-1.4) mg/dl Est Cr Clr Drug Dosing ml/min Est GFR ( Amer) Est GFR (Non-Af Amer) BUN/Creatinine Ratio (10-20) Glucose (70-99) mg/dl Estimat Average Glucose 126 mg/dl Hemoglobin A1c 6.0 H (4.5-5.6) % Calcium (8.5-10.1) mg/dl Albumin (3.4-5.0) gm/dl Urine Color Yellow Urine Appearance Clear (Clear) Urine pH 5.0 (4.5-7.5) Ur Specific [place] 1.025 (1.000-1.030) Urine Protein Negative (Negative) Urine Glucose (UA) Negative (Negative) Urine Ketones Negative (Negative) Urine Blood Negative (Negative) Urine Nitrite Negative (Negative) Urine Bilirubin Negative (Negative) Urine Urobilinogen Negative (Negative) Ur Leukocyte Esterase Negative (Negative) Hepatitis C Ab Screen (Neg) Blood Type O Negative Antibody Screen NEGATIVE 12/29/18 12/30/18 12/30/18 Range/Units 05:50 06:17 06:17 WBC 25.54 H (4.8-10.8) K/uL RBC 4.27 L (4.7-6.1) M/uL Hgb 12.7 L (14.0-18.0) g/dL Hct 37.3 L (42-52) % MCV 87.4 (80-100) fL MCH 29.7 (25-34) pg MCHC 34.0 (32-36) g/dL RDW Std Deviation 41.8 (36.4-46.3) fL RDW Coeff of Carlito 13.1 (11.5-14.5) % Plt Count 243 (130-400) K/uL MPV 9.8 (7.4-10.4) fL Immature Gran % (Auto) % Neut % (Auto) % Lymph % (Auto) % Garvin % (Auto) % Eos % (Auto) % Baso % (Auto) % Immature Gran # (Auto) (0.00-0.02) K/uL Neut # (Auto) (1.4-6.5) K/uL Lymph # (Auto) (1.2-3.4) K/uL Garvin # (Auto) (0.11-0.59) K/uL Eos # (Auto) (0-0.5) K/uL Baso # (Auto) (0-0.2) K/uL PT (9.0-12.0) Seconds INR (0.9-1.1) APTT (21.0-31.0) Seconds PTT Ratio Sodium 142 (136-145) mmol/L Potassium 4.2 (3.5-5.1) mmol/L Chloride 110 H (98-107) mmol/L Carbon Dioxide 23 (21-32) mmol/L Anion Gap 9.0 (3-11) BUN 22 H (7-18) mg/dl Creatinine 0.92 (0.6-1.4) mg/dl Est Cr Clr Drug Dosing 105.8 ml/min Est GFR ( Amer) 102.2 Est GFR (Non-Af Amer) 88.2 BUN/Creatinine Ratio 23.5 H (10-20) Glucose 149 H (70-99) mg/dl Estimat Average Glucose mg/dl Hemoglobin A1c (4.5-5.6) % Calcium 8.8 (8.5-10.1) mg/dl Albumin (3.4-5.0) gm/dl Urine Color Urine Appearance (Clear) Urine pH (4.5-7.5) Ur Specific [place] (1.000-1.030) Urine Protein (Negative) Urine Glucose (UA) (Negative) Urine Ketones (Negative) Urine Blood (Negative) Urine Nitrite (Negative) Urine Bilirubin (Negative) Urine Urobilinogen (Negative) Ur Leukocyte Esterase (Negative) Hepatitis C Ab Screen Neg (Neg) Blood Type Antibody Screen Total Time Total Time Spent Total Time Spent (In Minutes): 20 Discharge Plan Discharge Items Patient Disposition: Home - Self-Care Reason For Visit: Unilateral Primary Osteoarthritis, Right Knee Discharge Diagnosis: Right knee arthritis Discharge Goals: Decrease discomfort and Improve function Activity: Per 'Additional Instructions' section Non-emergency contact: Surgeon Call non-emergency contact if: your pain is not controlled, your temperature is above 101.5, your wound has increased redness and your wound has increased drainage Follow-up/Referrals: Cliff Dickey MD [Primary Care Provider] - Diet: Regular Addtl Provider Instructions: ACTIVITY RECOMMENDATIONS: SELF CARE INSTRUCTIONS AFTER TOTAL KNEE REPLACEMENT A. You may need to continue a physical therapy program after discharge from the hospital. There are several options available to you. Your doctor will assist you in selecting the best one for you. 1. An out-patient facility 2 to 3 times a week for therapy or home therapy. 2. Continue working on all exercises taught to you in the hospital. Your goals should be to increase bending of your knee to 90 degrees and beyond and to fully straighten your knee. B. You may progress at your own pace from walking with a walker or crutches to a cane; then to no assistive devices. C. Make walking a part of your daily routine. Be up as much as comfortable with rest periods throughout the day. Rest with leg elevation is very important. Use the ice wrap frequently for the first 3-4 weeks. D. There are no restrictions on activities. You may ride in a car, shop, participate in terminal supervisor and all social activities. E. Wear the long elastic stockings (MARIO hose) 20 hours a day for 2 weeks after surgery. They can be removed several times a day for laundering and for a bath. F. You may shower, no tub baths until cleared by your doctor. SPECIAL CARE INSTRUCTIONS: VERY IMPORTANT TO READ AND REVIEW A. There are a few signs you need to watch for after you are home. Call [facility] if you notice any of the followin. Increased severe knee pain. Some pain is expected especially when you exercise. 2. Increased swelling in your leg or knee; pain or swelling of the calf muscle in either lower leg. 3. Any fluid drainage from the incision. 4. Shortness of breath or chest pain. B. Please call [facility] at if you have any concerns or questions about your operation or recovery. The doctor or his nurse will return your call promptly. C. You must take antibiotics before dental work, bladder, bowel or other surgery. Your doctor will provide you with a permanent care to carry describing this precaution. IMPORTANT: * REMEMBER TO TAKE ASPIRIN, 81 MG, TWICE DAILY FOR 4 WEEKS UNLESS OTHERWISE DIRECTED. THIS IS YOUR BLOOD THINNER. * HIGH RISK PATIENTS MAY BE PRESCRIBED A STRONGER BLOOD THINNER. THIS WILL BE PROVIDED AT DISCHARGE. * CALL IF INCREASED PAIN, REDNESS, DRAINAGE OR FEVER GREATER THAT 101. * WEAR MARIO HOSE 20 HOURS PER DAY FOR 2 WEEKS. FOLLOW UP VISIT: If appointment is not already scheduled: Please call [facility] to make a follow-up appointment for 2 weeks after your surgery at . Prescriptions: New acetaminophen [Tylenol Extra Strength] 500 mg Tablet 1,000 mg PO Q8 Qty: 0 RF: 0 celecoxib [Celebrex] 200 mg Capsule 200 mg PO BID Qty: 60 RF: 0 aspirin [Ecotrin Low Strength] 81 mg Tablet,Delayed Release (Dr/Ec) 81 mg PO BID 28 Days Qty: 56 RF: 0 oxycodone 5 mg capsule 5 - 10 mg PO Q6 PRN (Reason: pain) Qty: 30 RF: 0 Continued amlodipine [Norvasc] 10 mg Tablet 10 mg PO QAM RF: 0 lisinopril 40 mg Tablet 40 mg PO QAM RF: 0 Stand-Alone Forms: [place], Opioid Pain Management Discharge Orders: Discharge Order (Routine); Ordered 12/31/18 Ordered By: Terrance Troncoso Admission Data Admit Date/Time: 12/29/18 09:45 Attending Provider: Anirudh Zazueta Admit Provider: Anirudh Zazueta Primary Care Provider: Cliff Dickey Service: Surgical Services Other Interventions: Discharge Summary Assessment (RN) Last Done: 12/31/18 09:40 DC Date/Time DO NOT enter until pt leaves facility: 12/31/18 10:51
== END 2018-12-31 10:51 | disposition home or self-care (01) | DRG 470 ==
LOC: ASU 05:10 → 3E 09:45
DX: Z86.73 Personal history of transient ischemic attack (TIA), and cerebral infarction without residual deficits; Z83.3 Family history of diabetes mellitus; I10 Essential (primary) hypertension; M17.11 Unilateral primary osteoarthritis, right knee